=== PATIENT | male | born 2000 | race Caucasian/White ===

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

== ENCOUNTER 2018-03-08 02:17 | Emergency (ER) | payer OTHER, MEDICAID ==
[2018-03-08 02:38] VITALS: BP 118/66
--- NOTE | 2018-03-08 02:51 | ER Document Report ---
ED General - General Chief Complaint: Laceration Stated Complaint: NOSE BLEEDS Time Seen by Provider: 03/08/18 02:41 Mode of Arrival: Ambulatory Information source: Patient Notes: Patient says that he fell landing on a steel beam at work. Denies LOC. Complains of epistaxis and laceration inside mouth. TRAVEL OUTSIDE OF THE [place] IN LAST 30 DAYS: No - HPI Onset: This evening Onset/Duration: Sudden Quality of pain: Throbbing Severity: Mild Associated symptoms: None Exacerbated by: Denies Relieved by: Denies Similar symptoms previously: No Recently seen / treated by doctor: No - Related Data Allergies/Adverse Reactions: No Known Allergies Allergy (Verified 01/15/14 12:24) Past Medical History - General Information source: Patient - Social History Smoking Status: Current Some Day Smoker Family History: Reviewed & Not Pertinent Renal/ Medical History: Denies: Hx Peritoneal Dialysis - Immunizations Immunizations up to date: Yes Hx Diphtheria, Pertussis, Tetanus Vaccination: Yes Review of Systems - Review of Systems Constitutional: No symptoms reported EENT: Nose pain, Mouth pain, Dental problem Cardiovascular: No symptoms reported Respiratory: No symptoms reported Gastrointestinal: No symptoms reported Genitourinary: No symptoms reported Male Genitourinary: No symptoms reported Musculoskeletal: No symptoms reported Skin: No symptoms reported Hematologic/Lymphatic: No symptoms reported Neurological/Psychological: No symptoms reported -: Yes All other systems reviewed and negative Physical Exam - Vital signs Vitals: Temp Pulse Resp BP Pulse Ox 98.3 F 68 18 118/66 99 03/08/18 02:34 03/08/18 02:34 03/08/18 02:34 03/08/18 02:34 03/08/18 02:34 - General Notes: PHYSICAL EXAMINATION: GENERAL: Well-appearing, well-nourished and in no acute distress. HEAD: normocephalic. EYES: Pupils equal round and reactive to light, extraocular movements intact, sclera anicteric, conjunctiva are normal. ENT: Nares patent, No septal hematoma in the nose. No epistaxis. Small upper frenulum laceration, Possibly 1/4 of a centimeter. NECK: Normal range of motion, supple without lymphadenopathy LUNGS: Breath sounds clear to auscultation bilaterally and equal. No wheezes rales or rhonchi. HEART: Regular rate and rhythm without murmurs ABDOMEN: Soft, nontender, nondistended abdomen. No guarding, no rebound. No masses appreciated. Musculoskeletal: Normal range of motion, no pitting or edema. No cyanosis. NEUROLOGICAL: Cranial nerves grossly intact. Normal speech, normal gait. Normal sensory, motor exams PSYCH: Normal mood, normal affect. SKIN: Warm, Dry, normal turgor, no rashes or lesions noted. Course - Re-evaluation Re-evalutation: 03/08/18 02:56 Nares is patent. No currently epistaxis. No septal hematoma. No tenderness to palpation of the bony aspect. Patient does have tenderness to the tip where the cartilage is located. Inside the mouth, there is an upper frenulum laceration. It is very small. Possibly a fourth of a centimeter. No active bleeding. Offered patient imaging of his nose. Patient declines imaging. Patient has teeth pain. No missing teeth. Patient instructed to follow-up with his primary care physician, ENT, dentist this week, to take [id number] medication for symptom relief, and to return for worsening symptoms. 03/08/18 02:59 - Vital Signs Vital signs: Temp Pulse Resp BP Pulse Ox 98.3 F 68 18 118/66 99 03/08/18 02:34 03/08/18 02:34 03/08/18 02:34 03/08/18 02:34 03/08/18 02:34 Discharge - Discharge Clinical Impression: Epistaxis Laceration of upper frenulum Qualifiers: Encounter type: initial encounter Qualified Code(s): S01.511A - Laceration without foreign body of lip, initial encounter Condition: Good Disposition: HOME, SELF-CARE Instructions: Oral Laceration, Not Sutured (OM), Nosebleed Instructions ([facility]) Referrals: AIXA LEDESMA DO [ASSOCIATE] - Follow up as needed OBDULIA GIRARD MD [COMMUNITY BASED STAFF] - Follow up as needed
== END 2018-03-08 03:05 | disposition home or self-care (01) ==
LOC: ER 02:17
DX: S01.511A Laceration without foreign body of lip, initial encounter (principal); R04.0 Epistaxis; W19.XXXA Unspecified fall, initial encounter; Y99.0 Civilian activity done for income or pay; F17.200 Nicotine dependence, unspecified, uncomplicated
CPT/HCPCS: 99282